=== PATIENT | female | born 1950 | race Caucasian/White ===

== ENCOUNTER 2016-12-30 17:34 | Emergency (ER) | payer MEDICARE, MEDICAID ==
[2016-12-30 17:40] VITALS: BP 129/64
--- NOTE | 2016-12-30 18:52 | ER Document Report ---
HPI - HPI Patient complains to provider of: FB to ear Onset: This afternoon Onset/Duration: Sudden Quality of pain: Achy Pain Level: 2 Context: Patient states she was using a Q-tip to clean her left ear and part of the cotton swab is still in her left ear canal. Patient complains of some mild irritation to the left ear. Associated Symptoms: Earache Exacerbated by: Denies Relieved by: Denies Similar symptoms previously: No Recently seen / treated by doctor: No - ROS ROS below otherwise negative: Yes Systems Reviewed and Negative: Yes All other systems reviewed and negative - EENT EENT: REPORTS: Ear Pain - GASTROINTESTINAL Gastrointestinal: DENIES: Nausea, Patient vomiting - REPRODUCTIVE Reproductive: DENIES: : - DERM Skin Color: Normal Skin Problems: None Past Medical History - General Information source: Patient, Relative - Social History Smoking Status: Never Smoker Frequency of alcohol use: None Drug Abuse: None Occupation: none Lives with: Family Family History: Reviewed & Not Pertinent - Past Medical History Cardiac Medical History: Reports: Hx Hypertension Pulmonary Medical History: Reports: Hx COPD Renal/ Medical History: Denies: Hx Peritoneal Dialysis GI Medical History: Reports: Hx Gastroesophageal Reflux Disease Musculoskeltal Medical History: Reports Hx Arthritis Past Surgical History: Reports: Hx Appendectomy, Hx Section - x2 - Immunizations Immunizations up to date: Yes Hx Diphtheria, Pertussis, Tetanus Vaccination: Yes Hx Pneumococcal Vaccination: 05/14/12 Vertical Provider Document - CONSTITUTIONAL Agree With Documented VS: Yes Exam Limitations: No Limitations General Appearance: WD/WN, No Apparent Distress - INFECTION CONTROL TRAVEL OUTSIDE OF THE [place] IN LAST 30 DAYS: No - HEENT HEENT: Atraumatic, Normocephalic Notes: No visible foreign body to ears bilaterally. Patient with eczematous skin lesion to right helix. Imperforate TM on the left (pt reports this is chronic) - NECK Neck: Normal Inspection - RESPIRATORY O2 Sat by Pulse Oximetry: 93 - MUSCULOSKELETAL/EXTREMETIES Musculoskeletal/Extremeties: MAEW - NEURO Level of Consciousness: Awake, Alert, Appropriate Motor/Sensory: No Motor Deficit - DERM Integumentary: Warm, Dry, Rash - eczematous rash to r ear lobe Course - Vital Signs Vital signs: Temp Pulse Resp BP Pulse Ox 98.5 F 92 20 129/64 H 93 12/30/16 17:39 12/30/16 17:39 12/30/16 17:39 12/30/16 17:39 12/30/16 17:39 Discharge - Discharge Clinical Impression: concern about ear foreign body Condition: Stable Disposition: HOME, SELF-CARE Additional Instructions: Return as needed for any new or worsening symptoms Follow up with your primary care provider for recheck Referrals: [facility] [Provider Group] - Follow up as needed
== END 2016-12-30 19:10 | disposition home or self-care (01) ==
LOC: ER 17:34
DX: T16.2XXA Foreign body in left ear, initial encounter (principal)
CPT/HCPCS: 99283

== ENCOUNTER 2019-03-24 19:03 | Emergency (ER) | payer MEDICARE, MEDICAID ==
[2019-03-24 19:20] LABS: ABSOLUTE BASOPHILS # (AUTO) 0.1 10^3/uL (0.0-0.2); ABSOLUTE EOSINOPHILS # (AUTO) 0.6 10^3/uL (0.0-0.6); ABSOLUTE LYMPHOCYTES (AUTO) 1.2 10^3/uL (0.5-4.7); ABSOLUTE MONOCYTES (AUTO) 1.2 10^3/uL (0.1-1.4); ABSOLUTE NEUT (AUTO) 7.4 10^3/uL (1.7-8.2); BASOPHILS % (AUTO) 0.5 % (0-2); EOSINOPHILS % (AUTO) 5.4 % (0-6); HEMATOCRIT 32.8 % (36.0-47.0); HEMOGLOBIN 11.2 g/dL (12.0-15.5); LYMPHOCYTES % (AUTO) 11.8 % (13-45); MEAN CORPUSCULAR HEMOGLOBIN 27.9 pg (27.0-33.4); MEAN CORPUSCULAR HGB CONC 34.1 g/dL (32.0-36.0); MEAN CORPUSCULAR VOLUME 82 fl (80-97); MONOCYTES % (AUTO) 11.6 % (3-13); PLATELET COUNT 427 10^3/uL (150-450); RED CELL DISTRIBUTION WIDTH 15.1 % (11.5-14.0); SEGMENTED NEUTROPHILS % (AUTO) 70.7 % (42-78); TOTAL CELLS COUNTED % (AUTO) 100 %; WHITE BLOOD COUNT 10.5 10^3/uL (4.0-10.5)
--- NOTE | 2019-03-24 19:30 | RADIOLOGY REPORT (SQ) ---
EXAM DESCRIPTION: CHEST SINGLE VIEW COMPLETED DATE/TIME: 03/24/2019 7:19 pm REASON FOR STUDY: Difficulty breathing COMPARISON: 06/10/2015 TECHNIQUE: Single frontal radiographic view of the chest acquired. NUMBER OF VIEWS: One view. LIMITATIONS: None. FINDINGS: LUNGS AND PLEURA: No pneumothorax. No consolidation or pleural effusion. MEDIASTINUM AND HILAR STRUCTURES: Stable. HEART AND VASCULAR STRUCTURES: Stable. BONES: No acute findings. HARDWARE: None in the chest. OTHER: No other significant finding. IMPRESSION: NO ACUTE FINDINGS. TECHNICAL DOCUMENTATION: JOB ID: [id number] [id number] 2010 [employer]- All Rights Reserved Reading location - IP/workstation name: [email or web address]
[2019-03-24 19:43] LABS: ALBUMIN 4.3 g/dL (3.5-5.0); ALKALINE PHOSPHATASE 85 U/L (38-126); ANION GAP 10 (5-19); ASPARTATE AMINO TRANSFERASE 52 U/L (14-36); BILIRUBIN,DIRECT 0.2 mg/dL (0.0-0.4); BILIRUBIN,TOTAL 0.6 mg/dL (0.2-1.3); BLOOD UREA NITROGEN 13 mg/dL (7-20); CALCIUM 9.3 mg/dL (8.4-10.2); CARBON DIOXIDE 33 mmol/L (22-30); CHLORIDE 81 mmol/L (98-107); GLUCOSE 100 mg/dL (75-110); POTASSIUM 4.5 mmol/L (3.6-5.0); TOTAL PROTEIN 7.5 g/dL (6.3-8.2)
[2019-03-24] MEDS ORDERED: NORMAL SALINE 1000 ML 1,000 ML IV ONE (19:51)
--- NOTE | 2019-03-24 19:54 | ER Document Report ---
ED General - General Chief Complaint: Shortness Of Breath Stated Complaint: DIFFICULTY BREATHING Time Seen by Provider: 03/24/19 19:16 Primary Care Provider: ISMAEL MAGALLON MD [Primary Care Provider] - Follow up as needed TRAVEL OUTSIDE OF THE [place] IN LAST 30 DAYS: No - HPI Notes: Patient is a 69-year-old female who presents to the emergency department for evaluation of cough and difficult to breathing. Symptoms have been present for 2 days. She denies any chest pain. No fevers. No nausea or vomiting. She is been taking her medications as prescribed. Her cough has been intermittently productive. She called EMS, who placed her on CPAP upon arrival. - Related Data Allergies/Adverse Reactions: No Known Allergies Allergy (Verified 12/30/16 17:38) Home Medications: Spiriva. gabapentin 100mg qd. atorvastatin 40mg qd. tessalon 100mg BID. omeprazole 20mg BID. lisinopril 40mg qd. hctz 25mg qd. albuterol. symbicort. phenergan 25mg BID. bisacodyl 5mg Past Medical History - General Information source: Patient - Social History Smoking Status: Former Smoker Family History: Reviewed & Not Pertinent Patient has suicidal ideation: No Patient has homicidal ideation: No - Past Medical History Cardiac Medical History: Reports: Hx Hypertension Pulmonary Medical History: Reports: Hx COPD Renal/ Medical History: Denies: Hx Peritoneal Dialysis GI Medical History: Reports: Hx Gastroesophageal Reflux Disease Musculoskeletal Medical History: Reports Hx Arthritis Past Surgical History: Reports: Hx Appendectomy, Hx Section - x2 - Immunizations Immunizations up to date: Yes Hx Diphtheria, Pertussis, Tetanus Vaccination: Yes Hx Pneumococcal Vaccination: 05/14/12 Review of Systems - Review of Systems Constitutional: No symptoms reported EENT: No symptoms reported Cardiovascular: No symptoms reported Respiratory: See HPI Gastrointestinal: No symptoms reported Genitourinary: No symptoms reported Musculoskeletal: No symptoms reported Skin: No symptoms reported Neurological/Psychological: No symptoms reported Physical Exam - Vital signs Vitals: Pulse Ox 100 03/24/19 19:03 - Notes Notes: This is a 69-year-old female who appears older than her stated age, no acute distress. She has BiPAP already in place, lying supine in the bed. She states she is feeling improved. Vital signs reviewed, please refer to chart. Head is normocephalic, atraumatic. Pupils equal round, reactive to light. Neck is supple without meningismus. Heart is regular rate and rhythm. Lungs reveal mildly prolonged expiratory phase with very scant wheezing, more pronounced at t he bases.. Abdomen is soft, nontender, normoactive bowel sounds throughout. Extremities without cyanosis, clubbing. Posterior calves are nontender. Peripheral pulses are equal. Skin is warm and dry. Patient is awake, alert, neurological exam is nonfocal. Course - Re-evaluation Re-evalutation: 03/24/19 19:49 Patient presents emergency department for evaluation. Laboratory investigations were obtained. The patient was treated with Solu-Medrol and albuterol in route via EMS. She was feeling improved. Her CPAP was converted to BiPAP upon her arrival. She is feeling significantly improved. Laboratory investigations are pending at this time, we will continue to monitor. 03/24/19 22:19 Patient was feeling significantly improved. Actually upon initial evaluation she was not any significant distress. I did take her off the BiPAP. She was placed on her normal 2-1/2 L and she was 98 to 99%. She is feeling improved. She does not live alone. She has a potty chair and everything set up in her room so she would not need to ambulate far. The patient feels comfortable with the idea of being discharged home. I will send her home with antibiotics. She is given her first dose of Levaquin here. We will send her with a prescription first prednisone as well. She is to return to the ED with worsening or new concerning symptoms of any sort. - Vital Signs Vital signs: Temp Pulse Resp BP Pulse Ox 97.9 F 20 137/84 H 99 03/24/19 19:08 03/24/19 21:01 03/24/19 21:01 03/24/19 21:01 - Laboratory Result Diagrams: 03/24/19 19:10 03/24/19 19:10 Laboratory results interpreted by me: 03/24/19 03/24/19 03/24/19 19:10 19:10 19:53 Hgb 11.2 L Hct 32.8 L RDW 15.1 H Lymph % (Auto) 11.8 L Carbonic Acid 1.52 H ABG pCO2 50.5 H ABG pO2 102.9 H ABG HCO3 30.6 H ABG Total CO2 32.2 H Sodium 124.0 L Chloride 81 L Carbon Dioxide 33 H AST 52 H - Diagnostic Test Radiology reviewed: Image reviewed, Reports reviewed Radiology results interpreted by me: 03/24/19 19:51 Chest X-Ray 03/24/19 19:06 IMPRESSION: NO ACUTE FINDINGS. - EKG Interpretation by Me Additional EKG results interpreted by me: 03/24/19 22:23 Sinus tachycardia with a rate of 106 bpm. Right axis deviation. Nonspecific ST changes, but no acute changes concerning for ischemia or infarction. Discharge - Discharge Clinical Impression: COPD with acute exacerbation Condition: Stable Disposition: HOME, SELF-CARE Instructions: Chronic Obstructive Lung Disease ([facility]) Additional Instructions: Use your nebulizer at home as directed. Follow-up with your primary care physician in 1 to 2 days. Start prednisone and Levaquin tomorrow. If you develop increased difficulty breathing, chest pain, or any other new or concerning symptoms, please return immediately to the emergency department for evaluation. Prescriptions: Prednisone [Deltasone 20 mg Tablet] See Protocol PO DAILY 5 Days #20 tablet Levofloxacin [Levaquin 750 mg Tablet] 750 mg PO DAILY #4 tablet Referrals: ISMAEL MAGALLON MD [Primary Care Provider] - Follow up as needed
[2019-03-24 20:17] LABS: ARTERIAL BLOOD FIO2 28%; ARTERIAL BLOOD H2CO3 1.52 mmol/L (1.05-1.35); ARTERIAL BLOOD HCO3 30.6 mmol/L (20-24); ARTERIAL BLOOD O2 SATURATION 97.6 % (94-98); ARTERIAL BLOOD PCO2 50.5 mmHg (35-45); ARTERIAL BLOOD PO2 102.9 mmHg (80-100); ARTERIAL BLOOD TOTAL CO2 32.2 mmol/L (21-25)
[2019-03-24] MEDS ORDERED: LEVOFLOXACIN 750 MG TABLET PO ONE (22:19)
[2019-03-24 22:32] VITALS: BP 116/51
--- NOTE | 2019-03-25 20:18 | EKG REPORT ---
SEVERITY:- ABNORMAL ECG - SINUS TACHYCARDIA RIGHT AXIS DEVIATION BORDERLINE R WAVE PROGRESSION, ANTERIOR LEADS : Confirmed by: Martha Galvez MD 25-Mar-2019 20:17:23
== END 2019-03-24 22:45 | disposition home or self-care (01) ==
LOC: ER 19:03
DX: J44.1 Chronic obstructive pulmonary disease with (acute) exacerbation (principal); R05 Cough; R00.0 Tachycardia, unspecified; I10 Essential (primary) hypertension; K21.9 Gastro-esophageal reflux disease without esophagitis; Z79.899 Other long term (current) drug therapy; Z79.51 Long term (current) use of inhaled steroids; Z87.891 Personal history of nicotine dependence
CPT/HCPCS: 93005; 99285; 96360; 96361; 36415; 82803; 85025; 80053; 71045; 93010; 94660; J7030; A9270